=== PATIENT | female | born 1970 | race Caucasian/White ===

== ENCOUNTER 2023-02-11 07:58 | Day surgery (SDC) | payer OTHER ==
[2023-02-04 13:55] VITALS: BMI 24.7
[2023-02-11 09:04] VITALS: TEMP 97.6
[2023-02-11 09:36] VITALS: BP 112/71; PULSE 65
[2023-02-11 09:37] VITALS: RESP 18
== END 2023-02-11 09:38 | disposition home or self-care (01) ==
LOC: FASU-ENDO 07:58
PROVIDERS: ATTEND Internal Medicine Gastroenterology
PROC: 0DB68ZX Excision of Stomach, Via Natural or Artificial Opening Endoscopic, Diagnostic (ICD-10-PCS; 2023-02-11)
PROC: 0DBL8ZX Excision of Transverse Colon, Via Natural or Artificial Opening Endoscopic, Diagnostic (ICD-10-PCS; principal; 2023-02-11 08:28)
DX: Z12.11 Encounter for screening for malignant neoplasm of colon (principal); D12.2 Benign neoplasm of ascending colon; K29.50 Unspecified chronic gastritis without bleeding; R12 Heartburn; Z98.84 Bariatric surgery status
CPT/HCPCS: 88305-TC; 88342-TC